=== PATIENT | male | born 1945 | race Caucasian/White ===

== ENCOUNTER 2019-08-02 20:14 | Inpatient (IN) | payer OTHER ==
[2019-08-02 20:39] LABS: BASOPHILS # (AUTO) 0.1 10^3/uL (0.0-0.1); BASOPHILS % (AUTO) 0.7 %; EOSINOPHILS # (AUTO) 0.4 10^3/uL (0.0-0.7); EOSINOPHILS % (AUTO) 5.1 %; HGB - HEMOGLOBIN 11.3 g/dL (14.0-18.0); LYMPHOCYTES # (AUTO) 0.8 10^3/uL (1.5-3.5); MEAN CORPUSCULAR HEMOGLOBIN 31.7 pg (27.0-31.0); MEAN CORPUSCULAR HGB CONC 32.5 g/dL (32.0-36.0); MEAN CORPUSCULAR VOLUME 97.5 fL (80.0-94.0); MEAN PLATELET VOLUME 10.2 fL (7.4-11.4); MONOCYTES # (AUTO) 0.7 10^3/uL (0.0-1.0); MONOCYTES % (AUTO) 9.6 %; NEUTROPHILS # (AUTO) 5.6 10^3/uL (1.5-6.6); NEUTROPHILS % (AUTO) 73.2 %; PLT - PLATELET COUNT 194 10^3/uL (130-450); RED BLOOD COUNT 3.57 10^6/uL (4.70-6.10); RED CELL DISTRIBUTION WIDTH 13.5 % (12.0-15.0); WHITE BLOOD COUNT 7.6 x10^3/uL (4.8-10.8)
[2019-08-02 20:56] LABS: BILIRUBIN,TOTAL 0.7 mg/dL (0.2-1.0); CALCIUM 8.2 mg/dL (8.5-10.3); CREATININE 3.8 mg/dL (0.6-1.2)
--- NOTE | 2019-08-02 21:16 | XRAY Report ---
Reason: chest pain Procedure Date: 08/02/2019 Accession Number: [id number] / [id number] Procedure: XR - Chest 1 View X-Ray CPT Code: 35247 Final Report FULL RESULT: EXAM: CHEST RADIOGRAPHY EXAM DATE: 08/02/2019 08:55 PM. CLINICAL HISTORY: Chest pain. COMPARISON: None. TECHNIQUE: 1 view. FINDINGS: Lungs/Pleura: No consolidation, airspace disease, pleural effusion or pneumothorax. Mediastinum: Within exam limitations, the cardiomediastinal contour is normal. Other: Screw seen at the left scapula. IMPRESSION: No acute cardiopulmonary disease seen. [facility]
--- NOTE | 2019-08-02 21:57 | ED Physician Documentation ---
History of Present Illness - Stated complaint Stated Complaint: WEAK/SOA/SWOLLEN LEGS - Chief complaint Chief Complaint: General - Additonal information Additional information: This is a 74-year-old male with a history of diabetes, Heart failure (unknown EF, but apparently a candidate for a defibrillator), hypertension, atrial fibrillation, CKD, who was sent in today from his primary care provider because of acute kidney injury. He states that for months now he has been winded to the point where he can only walk 50 feet at a time. This is not changed over last several weeks. He did change his dose of Lasix from 60 to 140 on 07/27/2019. Since then he has had increasing lower extremity edema. His creatinine was 2.10 on 06/28 which is his baseline, and on labs done yesterday his creatinine was elevated to 3.52. He denies any pain or burning with urination, no abdominal pain, his breathing feels baseline, he does not have any chest pain. His web producer is Dr. Gupta. He does feel that his lower extremities are slightly More swollen than usual. No chest pain. Review of Systems Constitutional: denies: Fever Nose: denies: Rhinorrhea / runny nose Cardiac: reports: Pedal edema. denies: Chest pain / pressure Respiratory: reports: Dyspnea GI: denies: Abdominal Pain : denies: Dysuria Skin: denies: Rash PD PAST MEDICAL HISTORY - Past Medical History Past Medical History: Yes Cardiovascular: Congestive heart failure, Hypertension, High cholesterol, Coronary artery disease, Atrial fibrillation Endocrine/Autoimmune: Type 2 diabetes HEENT: Chronic hearing loss Psych: Depression, Post traumatic stress disorder Musculoskeletal: Osteoarthritis, Chronic back pain - Past Surgical History Past Surgical History: Yes Ortho: Amputation - Present Medications Home Medications: Ambulatory Orders Medication Instructions Recorded Confirmed Aspirin [Adult Low Dose Aspirin EC] 81 mg PO DAILY 05/06/17 09/24/17 Cholecalciferol (Vitamin D3) 4,000 unit PO DAILY 05/06/17 09/24/17 [Vitamin D3] Cyanocobalamin (Vitamin B-12) 1,000 mcg PO DAILY 05/06/17 09/24/17 [Vitamin B-12] Furosemide [Lasix] 60 mg PO DAILY 05/06/17 09/24/17 Gabapentin 2 cap PO DAILY 05/06/17 09/24/17 Lisinopril 20 mg PO DAILY 05/06/17 09/24/17 Nortriptyline HCl 50 mg PO DAILY PM 05/06/17 09/24/17 Simvastatin 20 mg PO DAILY PM 05/06/17 09/24/17 Terazosin HCl 3 cap PO DAILY PM 05/06/17 09/24/17 - Allergies Allergies/Adverse Reactions: Allergies Allergy/AdvReac Type Severity Reaction Status Date / Time No Known Drug Allergies Allergy Verified 08/02/19 20:23 - Social History Does the pt smoke?: Yes Smoking Status: Current every day smoker PD ED PE NORMAL - Vitals Vital signs reviewed: Yes - General General: Alert and oriented X 3, No acute distress - HEENT HEENT: Atraumatic, PERRL - Neck Neck: Supple, no meningeal sign - Cardiac Cardiac: Other (Borderline bradycardia, irregularly irregular rhythm) - Respiratory Respiratory: Clear bilaterally - Abdomen Abdomen: Other (Rotund, nontender to palpation in all 4 quadrants) - Derm Derm: Warm and dry - Extremities Extremities: No deformity, Other (Right foot has all toes amputated, no skin wounds. Left foot on the plantar surface at the base of the second metacarpal has a 1 cm chronic wound which does not appear infected with no erythema no purulent drainage. Lateral lower extremities have 2+ pitting edema) - Neuro Neuro: Alert and oriented X 3 - Psych Psych: Normal mood, Normal affect Results - Vitals Vitals: Vital Signs - 24 hr 08/02/19 08/02/19 08/02/19 20:23 21:54 22:00 Temperature 37.1 C 36.8 C Heart Rate 59 L 46 L 44 L Respiratory 24 18 15 Rate Blood Pressure 147/58 H 168/67 H 138/60 H O2 Saturation 94 95 95 08/02/19 08/02/19 22:30 23:30 Temperature Heart Rate 47 L 48 L Respiratory 17 20 Rate Blood Pressure 149/72 H 147/64 H O2 Saturation 94 97 Oxygen O2 Source Room air - EKG (time done) 20:43 Other comments: Other comments (Rate 43, rhythm atrial fibrillation, there is a incomplete left bundle branch block, there is slight ST depression in V2 and V3, which is discordant.) - Labs Labs: Laboratory Tests 08/02/19 08/02/19 08/02/19 20:34 20:34 20:34 WBC 7.6 RBC 3.57 L Hgb 11.3 L Hct 34.8 L MCV 97.5 H MCH 31.7 H MCHC 32.5 RDW 13.5 Plt Count 194 MPV 10.2 Neut # (Auto) 5.6 Lymph # (Auto) 0.8 L Hamilton # (Auto) 0.7 Eos # (Auto) 0.4 Baso # (Auto) 0.1 Absolute Nucleated RBC 0.00 Nucleated RBC % 0.0 Sodium 144 Potassium 4.4 Chloride 113 H Carbon Dioxide 21 Anion Gap 10.0 BUN 79 H Creatinine 3.8 H Estimated GFR (MDRD) 16 L Glucose 129 H Calcium 8.2 L Magnesium 2.1 Total Bilirubin 0.7 AST 20 ALT 14 Alkaline Phosphatase 70 B-Natriuretic Peptide Total Protein 6.0 L Albumin 3.0 L Globulin 3.0 Albumin/Globulin Ratio 1.0 Lipase 48 08/02/19 20:34 WBC RBC Hgb Hct MCV MCH MCHC RDW Plt Count MPV Neut # (Auto) Lymph # (Auto) Hamilton # (Auto) Eos # (Auto) Baso # (Auto) Absolute Nucleated RBC Nucleated RBC % Sodium Potassium Chloride Carbon Dioxide Anion Gap BUN Creatinine Estimated GFR (MDRD) Glucose Calcium Magnesium Total Bilirubin AST ALT Alkaline Phosphatase B-Natriuretic Peptide 440 H Total Protein Albumin Globulin Albumin/Globulin Ratio Lipase - Rads (name of study) CXR Radiology: Other (No acute cardiopulmonary abnormality) PD MEDICAL DECISION MAKING - ED course Complexity details: considered differential (GABY, electrolyte abnormality, volume hypovolemia, overdiuresis, cardiorenal syndrome) ED course: On my examination patient is non-toxic, he was sent in due to his labs showing an elevated creatinine. He did recently increase his dose of diuretics, and speaking to him and his , he was told to take 80 mg a day and they were not sure whether this was supposed to be in place of the 60 mg he typically takes or on top of it, so they have been taking a total of 140 mg daily. Despite this he has had some lower extremity edema and his work of breathing is at his baseline. Labs today confirm that he has an elevated creatinine, which is significantly increased from his baseline of around 2. His BUN is also elevated. His BNP is elevated, though it is unclear how reflective this is of his overall heart strain given his weight. He will be admitted to the hospital for further work-up and treatment of his GABY and assessment of his heart failure and volume status. Patient remains asymptomatic at the time of admission, he is bradycardic, but this appears to be his baseline, and he has no chest pain or symptoms to suggest ACS. Departure - Departure Disposition: ED Place in Observation Clinical Impression: Acute kidney injury Condition: Good Discharge Date/Time: 08/03/19 00:13
--- NOTE | 2019-08-02 23:50 | HISTORY & PHYSICAL EXAMINATION ---
Chief Complaint - Chief Complaint Chief Complaint: acute kidney injury, lower extremity edema, dyspnea on exertion History of Present Illness - Admitted From Admitted From:: [facility] - History Obtained From Records Reviewed: yes History obtained from: patient and - History of Present Illness HPI Comment/Other: Patient is a 74 y/o male who presented to the ED at the request of his real estate executive assistant's (Dr Gupta) office after schedule out patient lab results showed a creatinine of 3.8. His las creatinine reading prior to this was 2.2 about 1 month ago. He reports increased lower extremity edema and increased feeling of bloating. He gets significantly dyspneic after ambulating about 50ft and has to stop for a breath. He also complain of a feeling like heart burn during this time. He denies nausea, vomiting, diarrhea or fever. He had been instructed to start taking 80mg of lasix po daily from 07/27/19. This would have been an increase from 60mg po daily. However he has been taking a total of 140mg po daily since 07/27/19. He is scheduled to see Dr Gupta on 08/05/19. He has Hx of CHF. His remote medical coder is Dr Salas. His BNP was 440. As a result of his creatinine of 3.8 he is being admitted for further evaluation. History - Past Medical History Cardiovascular: reports: Congestive heart failure, Hypertension, High cholesterol, Coronary artery disease, Atrial fibrillation Endocrine/Autoimmune: reports: Type 2 diabetes : reports: Benign prostate hypertrophy HEENT: reports: Chronic hearing loss Psych: reports: Depression, Post traumatic stress disorder Musculoskeletal: reports: Osteoarthritis, Chronic back pain MRSA Hx?: No - Past Surgical History Ortho: reports: Knee replacement (bilateral), Amputation (right distal half of foot) Cardiovascular: reports: Angioplasty - Family & Social History Family History Comment/Other: mother: breast cancer and heart failure. father: alcohol abuse, cirrhosis and emphysema. brother: brain aneurysm. paternal grandfather: cancer(unspecified) Living arrangement: At home Living Situation: With spouse/s.o. Social History Notes: Quit smoking 33 years ago but recently started again 3 months ago while on an [employer] cruise. Rarely drinks alcohol. No illicit drugs - POLST Patient has POLST: No POLST Status: Full Code Meds/Allgy - Home Medications Home Medications: Ambulatory Orders Medication Instructions Recorded Confirmed Cholecalciferol (Vitamin D3) 4,000 unit PO DAILY 05/06/17 08/03/19 [Vitamin D3] Furosemide [Lasix] 80 mg PO DAILY 05/06/17 08/03/19 Lisinopril 40 mg PO QPM 05/06/17 08/03/19 Nortriptyline HCl 50 mg PO DAILY PM 05/06/17 08/03/19 Simvastatin 20 mg PO DAILY PM 05/06/17 08/03/19 Terazosin HCl 4 cap PO DAILY PM 05/06/17 08/03/19 Amlodipine Besylate 10 mg PO QPM 08/03/19 08/03/19 Apixaban [Eliquis] 5 mg PO BID 08/03/19 08/03/19 Dextrose [Glucose] 4 gm PO 08/03/19 Duloxetine HCl [Cymbalta] 60 mg PO DAILY 08/03/19 08/03/19 Glimepiride 1 mg PO DAILY 08/03/19 08/03/19 Testosterone Cypionate 200 mg IM 08/03/19 hydrALAZINE [Apresoline] 25 mg PO QID 08/03/19 08/03/19 - Allergies Allergies/Adverse Reactions: Allergies Allergy/AdvReac Type Severity Reaction Status Date / Time No Known Drug Allergies Allergy Verified 08/02/19 20:23 Review of Systems - Constitutional Constitutional: denies: Fatigue, Fever, Chills - Eyes Eyes: denies: Blurred vision, Dipolpia - Ears, Nose & Throat Ears, Nose & Throat: denies: Vertigo - Cardiovascular Cariovascular: reports: Edema, Exertional dyspnea, Decr. exercise tolerance. denies: Irregular heart rate, Palpitations, Chest pain, Lightheadedness, Syncope - Respiratory Respiratory: reports: SOB at rest, SOB with exertion. denies: Cough, Wheezing, Snoring - Gastrointestinal Gastrointestinal: reports: Abdominal distention, Reflux/heartburn, Bloating. denies: Abdominal pain, Constipation, Diarrhea, Nausea, Vomiting, Coffee grounds emesis - Genitourinary Genitourinary: denies: Dysuria, Frequency, Urgency, Hematuria, Incontinence, Flank pain - Musculoskeletal Musculoskeletal: reports: Back pain - Integumentary Integumentary: denies: Rash, Pruritis, Lesions, Dryness - Neurological Neurological: denies: General weakness, Focal weakness, Headache, Dizziness - Psychiatric Psychiatric: denies: Depression, Anxiety - Endocrine Endocrine: denies: Polyuria, Polydypsia - Hematologic/Lymphatic Hematologic/Lymphatic: denies: Anemia, Bruising, Petechiae Prior Level of Functionality: He is independent of activities of daily living. But has become increasingly dyspneic with activity Exam - Vital Signs Vital Signs: Vital Signs x48h Temp Pulse Resp BP Pulse Ox 08/02/19 22:30 47 L 17 149/72 H 94 08/02/19 22:00 44 L 15 138/60 H 95 08/02/19 21:54 36.8 C 46 L 18 168/67 H 95 08/02/19 20:23 37.1 C 59 L 24 147/58 H 94 - Physical Exam General Appearance: positive: No acute distress, Alert Eyes Bilateral: positive: Normal inspection, PERRL, EOMI ENT: positive: No signs of dehydration Neck: positive: Nml inspection, No JVD, Trachea midline Respiratory: positive: No respiratory distress, Breath sounds nml. negative: Wheezes, Rales, Rhonchi Cardiovascular: positive: Bradycardia. negative: Regular rate & rhythm, No murmur Abdomen: positive: Non-tender, Nml bowel sounds, Other (distended/bloated/obese abdomen). negative: Guarding, Rebound Back: positive: Nml inspection Skin: positive: Color nml, No rash, Warm Extremities: positive: Pedal edema (2+) Neurologic/Psychiatric: positive: Oriented x3, CN's nml (2-12), Motor nml Conclusion/Plan - Problem List (1) Acute on chronic renal failure Conclusion/Plan: Likely multifactorial cause Med error: Patient has been taking lasix 140mg daily instead of 80mg daily ?Worsening cardiac function from CHF Will go back to lasix 80mg daily. Renal ultrasound ordered. Patient scheduled to see Dr Gupta on 08/05/19. If renal function remains stable or improves, will discharge to follow up with Dr Gupta (2) CHF (congestive heart failure) Conclusion/Plan: 2D echo pending Continue lasix 80mg po daily Trend troponin (3) CAD (coronary artery disease) Conclusion/Plan: On apixaban. Trend troponin. 2D echo pending On simvastatin. Hold lisinopril for now 2/2 GABY (4) Bradycardia Conclusion/Plan: Hold beta-vandana Monitor for now. If patient becomes symptomatic, will consider pacing (5) Hypertension Conclusion/Plan: Hold lisinopril for now. Continue hydralazine once verified (6) Depression Conclusion/Plan: On duloxetine and nortriptyline (7) BPH (benign prostatic hyperplasia) Conclusion/Plan: On terazosin (8) Diabetes mellitus Conclusion/Plan: Hold glimepiride Accu check. SSI Qualifiers: Diabetes mellitus type: type 2 (9) Hyperlipemia Conclusion/Plan: Resume simvastatin once verified. - Lab Results Fish Bones: 08/02/19 20:34 08/02/19 20:34 Core Measures - Anticipated LOS I expect patient to be DC'd or transferred within 96 hours.: Yes - DVT/VTE - Prophylaxis VTE/DVT Device ordered at admit?: Yes VTE/DVT Prophylaxis med ordered at admit?: Yes
[2019-08-03] MEDS: SODIUM CHLORIDE FLUSH 0.9% 10 ML SYRINGE IVP SCH ×3 (04:24→21:26)
[2019-08-03 05:44] LABS: BASOPHILS % (AUTO) 0.6 %; EOSINOPHILS # (AUTO) 0.5 10^3/uL (0.0-0.7); EOSINOPHILS % (AUTO) 6.4 %; HGB - HEMOGLOBIN 10.6 g/dL (14.0-18.0); LYMPHOCYTES # (AUTO) 1.3 10^3/uL (1.5-3.5); LYMPHOCYTES % (AUTO) 18.2 %; MEAN CORPUSCULAR HEMOGLOBIN 32.7 pg (27.0-31.0); MEAN CORPUSCULAR HGB CONC 33.1 g/dL (32.0-36.0); MEAN CORPUSCULAR VOLUME 98.8 fL (80.0-94.0); MEAN PLATELET VOLUME 10.6 fL (7.4-11.4); MONOCYTES # (AUTO) 0.7 10^3/uL (0.0-1.0); MONOCYTES % (AUTO) 9.6 %; NEUTROPHILS # (AUTO) 4.5 10^3/uL (1.5-6.6); NEUTROPHILS % (AUTO) 64.9 %; PLT - PLATELET COUNT 185 10^3/uL (130-450); RED BLOOD COUNT 3.24 10^6/uL (4.70-6.10); RED CELL DISTRIBUTION WIDTH 13.5 % (12.0-15.0)
[2019-08-03 05:52] LABS: CALCIUM 8.3 mg/dL (8.5-10.3); CREATININE 3.7 mg/dL (0.6-1.2)
[2019-08-03] MEDS: PANTOPRAZOLE 40 MG TABLET PO SCH (06:12)
[2019-08-03] MEDS: INSULIN ASPART 300 UNIT/3 ML PEN SUBQ SCH ×4 (08:42→21:26)
[2019-08-03] MEDS ORDERED: hydrALAZINE 25 MG TABLET PO SCH (09:00)
[2019-08-03] MEDS ORDERED: APIXABAN 5 MG TABLET PO SCH (11:00)
[2019-08-03] MEDS: SENNA 8.6 MG TABLET PO SCH (13:51)
[2019-08-03] MEDS: ACETAMINOPHEN/CODEINE 300 MG/30 MG TABLET PO PRN ×2 (13:51→20:09)
[2019-08-03] MEDS: DOCUSATE SODIUM 250 MG CAPSULE PO SCH (13:51)
[2019-08-03] MEDS: hydrALAZINE 25 MG TABLET PO SCH ×2 (14:02→21:20)
--- NOTE | 2019-08-03 15:52 | Ultrasound Report ---
Reason: ACUTE KIDNEY INJURY Procedure Date: 08/03/2019 Accession Number: [id number] / [id number] Procedure: US - Retroperitoneal CPT Code: Final Report FULL RESULT: EXAM: RENAL ULTRASOUND EXAM DATE: 08/03/2019 04:45 AM. CLINICAL HISTORY: ACUTE KIDNEY INJURY. COMPARISON: None. TECHNIQUE: Real-time scanning was performed with static images obtained. FINDINGS: Right Kidney: Right kidney measures 13.0 x 5.9 x 7.0 cm. Increased echogenicity of right kidney. Multiple cysts are present with largest measuring 2.9 x 2.8 x 4.0 cm with possible small septation. Several echogenic foci are present in right kidney, possibly nonobstructive calculi. Focal echogenic area in superior pole of right kidney measuring approximately 1 cm. Trace perinephric fluid. Left Kidney: Left kidney measures 12.0 x 6.6 x 5.6 cm. Left kidney appears mildly echogenic. Multiple cysts are present, largest measuring 1.9 x 2.3 x 2.2 cm. Several echogenic foci are present in right kidney, possibly nonobstructive calculi. Focal echogenic area in mid to inferior pole measuring approximately 2 cm. Bladder: Bilateral jets seen. The prevoid bladder volume was 326.2 cc. The postvoid bladder volume was 0 cc. Other: None. IMPRESSION: 1. Mildly echogenic kidneys suggestive of medical renal disease. 2. Bilateral renal cysts, largest on right measuring up to 4 cm. 3. Focal echogenic lesions in both kidneys, measuring approximately 1 cm on the right and 2 cm on the left. Sonographic findings are nonspecific. Recommend follow-up renal protocol CT or MR to further assess (with contrast if not contraindicated based on renal function). [facility]
[2019-08-03 16:17] LABS: CREATININE 3.9 mg/dL (0.6-1.2)
--- NOTE | 2019-08-03 17:47 | PROVIDER PROGRESS NOTE ---
Assessment/Plan - Problem List (1) Chest pain on exertion Assessment/Plan: He reported this as his main complaint as I met him today. This started 2 n mos ago, while he and his were on a cruise to [place]. He has an appointment with his Human Resources File Clerk, Dr Salas, in Aug. He last saw him Aug 2018. His troponins are neg here. An Echo wa done today, that shows no wall motion abnormality at rest, and LVEF 70% When I spoke today to Dr MATTHIAS Gupta, his Potato Chip Packaging Machine Operator, he advised transfer to a facility with a cardiac rags laborer. Will start antiplatelet agent, especially since the Eliquis will be stopped due to severe renal failure and creat > 2.5. Add Nitrates No B-vandana planned with his underlying bradycardia Diuresis would also help his CP sx (2) Acute on chronic renal failure Assessment/Plan: I spoke to his service greeter, Dr MATTHIAS Gupta, who called me back in the late afternoon. The Potato Chip Packaging Machine Operator advised managing his fluid overload and transfer to a facility with higher level of care available, such as [facility] or [facility]. Will admit him from Obs to Inpt status, since the creat is continuously worsening ([facility], 3.8 last evening, is 3.9 today). His retroperitoneal US showed echogenic kidneys, consistent with medical renal disease Do not resume his SERA Resume Hydralazine Will start iv Bumex Follow BMP I discussed the possibility of needing dialysis with him and was at bedside Will reach out to the [facility] to get approval for transfer to [facility], the patient's preference, if not the [facility]. (3) Anasarca associated with disorder of kidney Assessment/Plan: He requires a higher loop diuretic dose for diuresis Follow I's and O's Daily weight (4) Bradycardia Assessment/Plan: He was once checked for needing a pacemaker (not a defibrillator) by wearing a Holter monitor, and then no pacemaker was advised. 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 Will stop the Eliquis now, due to creat > 2.5. Continue telemetry (6) CHF (congestive heart failure) Qualifiers: Heart failure type: diastolic Assessment/Plan: Echo was done today and shows preserved LVEF of 70% but diastolic dysfunction present. Rate control (already slow) and diuresis are the plan. (7) Diabetes mellitus Qualifiers: Diabetes mellitus type: type 2 Assessment/Plan: Continue cc diet and ss Insulin Check A1c (8) Hypertension Assessment/Plan: Will adjust meds for BP control, stopping SERA-I, adding Nitrates to decrease preload. (9) CAD (coronary artery disease) Assessment/Plan: He gave me a Hx of previous angioplasty and stent Add ASA, Nitrates, statin (10) BPH (benign prostatic hyperplasia) Assessment/Plan: Restart home meds Eval for obstructive uropathy with MRI abd/pelvis (11) Depression Assessment/Plan: Restart home meds - Current Meds Current Meds: Current Medications Generic Name Dose Route Start Last Admin Trade Name Freq PRN Reason Stop Dose Admin Acetaminophen/Codeine Phosphate 1 tab 08/03/19 10:33 08/03/19 13:51 Tylenol #3 PO 1 tab Q6HR PRN Administration PAIN Docusate Sodium 250 - 500 mg 08/03/19 12:00 08/03/19 13:51 Colace 250mg Capsule PO 250 mg DAILY MARIANO Administration Hydralazine HCl 25 mg 08/03/19 15:00 08/03/19 14:02 Apresoline PO 25 mg TID MARIANO Administration Insulin Aspart 1 - 5 unit 08/03/19 08:00 08/03/19 17:32 Novolog SUBQ 1 unit 0800,1200,1700,2100 MARIANO Administration Protocol Pantoprazole Sodium 40 mg 08/03/19 07:00 08/03/19 06:12 Protonix PO Not Given QDAC MARIANO Senna 8.6 - 17.2 mg 08/03/19 12:00 08/03/19 13:51 Senokot PO 8.6 mg DAILY MARIANO Administration Sodium Chloride 10 ml 08/03/19 01:00 08/03/19 08:43 Normal Saline Flush 0.9% IVP 10 ml 0100,0900,1700 MARIANO Administration - Lab Result Fish Bone Diagrams: 08/03/19 05:34 08/03/19 16:02 - Additional Planning My Orders: My Active Orders 08/03/19 CUL, RESPIRATORY [RM] Urgent 08/03/19 10:33 Acetaminophen/Cod 300/30 [Tylenol #3] 1 tab PO Q6HR PRN 08/03/19 15:00 hydrALAZINE [Apresoline] 25 mg PO TID 08/03/19 17:42 Transfer [Admit \ Transfer \ Status] [RC] .ONCE 08/03/19 21:00 Nortriptyline [Pamelor] 50 mg PO QPM Terazosin [Hytrin] 4 mg PO QPM Subjective - Subjective Patient Reports: Shortness of Breath, Other (Orthopneic, worsening abdominal distension) Objective Vital Signs: Vital Signs - 24 hr 08/02/19 08/02/19 08/02/19 20:23 21:54 22:00 Temperature 37.1 C 36.8 C Heart Rate 59 L 46 L 44 L Heart Rate [ Brachial] Heart Rate [ Monitoring electrodes] Heart Rate [ Radial] Respiratory 24 18 15 Rate Blood Pressure 147/58 H 168/67 H 138/60 H Blood Pressure [Left Brachial artery] O2 Saturation 94 95 95 08/02/19 08/02/19 08/03/19 22:30 23:30 00:00 Temperature Heart Rate 47 L 48 L 48 L Heart Rate [ Brachial] Heart Rate [ Monitoring electrodes] Heart Rate [ Radial] Respiratory 17 20 15 Rate Blood Pressure 149/72 H 147/64 H 147/64 H Blood Pressure [Left Brachial artery] O2 Saturation 94 97 93 08/03/19 08/03/19 08/03/19 00:45 04:54 08:41 Temperature 36.3 C L 36.3 C L 36.9 C Heart Rate Heart Rate [ 44 L 49 L 57 L Brachial] Heart Rate [ Monitoring electrodes] Heart Rate [ Radial] Respiratory 17 16 19 Rate Blood Pressure Blood Pressure 140/60 H 162/67 H 137/68 H [Left Brachial artery] O2 Saturation 94 94 08/03/19 08/03/19 08/03/19 13:00 16:20 16:22 Temperature 36.3 C L 36.4 C L Heart Rate Heart Rate [ 133 H Brachial] Heart Rate [ 41 L Monitoring electrodes] Heart Rate [ 43 L Radial] Respiratory 18 16 Rate Blood Pressure Blood Pressure 145/68 H 160/69 H [Left Brachial artery] O2 Saturation 96 Oxygen O2 Source Nasal cannula I&O (Last 24 Hrs): Intake and Output Totals x24h 08/01/19 08/02/19 08/03/19 23:59 23:59 23:59 Intake Total 980 Output Total 400 Balance 580 General: Alert, Oriented x3 HEENT: Mucous membr. moist/pink Neck: Supple Neuro: Non Focal Cardiovascular: No murmurs, Other (Irreg, bradycardic) Respiratory: Other (Bilateral rales and bases) Abdomen: Soft, No tenderness, Other (Distended, possible fluid wave) Extremities: Other (4+ edema, R foot is S/P transmetatarsal amputation, healed) - Results Results: Laboratory Results WBC 7.0 x10^3/uL (4.8-10.8) 08/03/19 05:34 RBC 3.24 10^6/uL (4.70-6.10) L 08/03/19 05:34 Hgb 10.6 g/dL (14.0-18.0) L 08/03/19 05:34 Hct 32.0 % (42.0-52.0) L 08/03/19 05:34 MCV 98.8 fL (80.0-94.0) H 08/03/19 05:34 MCH 32.7 pg (27.0-31.0) H 08/03/19 05:34 MCHC 33.1 g/dL (32.0-36.0) 08/03/19 05:34 RDW 13.5 % (12.0-15.0) 08/03/19 05:34 Plt Count 185 10^3/uL (130-450) 08/03/19 05:34 MPV 10.6 fL (7.4-11.4) 08/03/19 05:34 Neut # (Auto) 4.5 10^3/uL (1.5-6.6) 08/03/19 05:34 Lymph # (Auto) 1.3 10^3/uL (1.5-3.5) L 08/03/19 05:34 [place] # (Auto) 0.7 10^3/uL (0.0-1.0) 08/03/19 05:34 Eos # (Auto) 0.5 10^3/uL (0.0-0.7) 08/03/19 05:34 Baso # (Auto) 0.0 10^3/uL (0.0-0.1) 08/03/19 05:34 Absolute Nucleated RBC 0.00 x10^3/uL 08/03/19 05:34 Nucleated RBC % 0.0 /100WBC 08/03/19 05:34 Sodium 141 mmol/L (135-145) 08/03/19 05:34 Potassium 4.5 mmol/L (3.5-5.0) 08/03/19 16:02 Chloride 111 mmol/L (101-111) 08/03/19 05:34 Carbon Dioxide 20 mmol/L (21-32) L 08/03/19 05:34 Anion Gap 10.0 (6-13) 08/03/19 05:34 BUN 80 mg/dL (6-20) H* 08/03/19 05:34 Creatinine 3.9 mg/dL (0.6-1.2) H 08/03/19 16:02 Estimated GFR (MDRD) 15 (>89) L 08/03/19 16:02 Glucose 107 mg/dL (70-100) H 08/03/19 05:34 POC Whole Bld Glucose 255 mg/dL (70 - 100) H 08/03/19 11:41 Calcium 8.3 mg/dL (8.5-10.3) L 08/03/19 05:34 Magnesium 2.1 mg/dL (1.7-2.8) 08/02/19 20:34 Total Bilirubin 0.7 mg/dL (0.2-1.0) 08/02/19 20:34 AST 20 IU/L (10-42) 08/02/19 20:34 ALT 14 IU/L (10-60) 08/02/19 20:34 Alkaline Phosphatase 70 IU/L (42-121) 08/02/19 20:34 Troponin I High Sens 19.2 ng/L (2.3-19.7) 08/03/19 13:30 B-Natriuretic Peptide 440 pg/mL (5-100) H 08/02/19 20:34 Total Protein 6.0 g/dL (6.7-8.2) L 08/02/19 20:34 Albumin 3.0 g/dL (3.2-5.5) L 08/02/19 20:34 Globulin 3.0 g/dL (2.1-4.2) 08/02/19 20:34 Albumin/Globulin Ratio 1.0 (1.0-2.2) 08/02/19 20:34 Lipase 48 U/L (22-51) 08/02/19 20:34
[2019-08-03] MEDS: NITROGLYCERIN 2% PASTE TOP SCH (19:08)
[2019-08-03] MEDS ORDERED: TERAZOSIN 1 MG CAPSULE PO SCH (21:00)
[2019-08-03] MEDS ORDERED: NORTRIPTYLINE 25 MG CAPSULE PO SCH (21:00)
[2019-08-03] MEDS ORDERED: ATORVASTATIN 40 MG TABLET PO SCH (21:00)
[2019-08-04] MEDS: SODIUM CHLORIDE FLUSH 0.9% 10 ML SYRINGE IVP SCH ×2 (00:28→08:24)
[2019-08-04] MEDS: ACETAMINOPHEN/CODEINE 300 MG/30 MG TABLET PO PRN ×2 (02:49→13:21)
[2019-08-04] MEDS: NITROGLYCERIN 2% PASTE TOP SCH ×2 (02:50→11:20)
[2019-08-04 04:49] LABS: BASOPHILS # (AUTO) 0.1 10^3/uL (0.0-0.1); BASOPHILS % (AUTO) 0.6 %; EOSINOPHILS # (AUTO) 0.5 10^3/uL (0.0-0.7); EOSINOPHILS % (AUTO) 6.5 %; HGB - HEMOGLOBIN 10.3 g/dL (14.0-18.0); LYMPHOCYTES # (AUTO) 0.9 10^3/uL (1.5-3.5); MEAN CORPUSCULAR HEMOGLOBIN 32.4 pg (27.0-31.0); MEAN CORPUSCULAR HGB CONC 32.6 g/dL (32.0-36.0); MEAN CORPUSCULAR VOLUME 99.4 fL (80.0-94.0); MEAN PLATELET VOLUME 10.9 fL (7.4-11.4); MONOCYTES # (AUTO) 0.8 10^3/uL (0.0-1.0); MONOCYTES % (AUTO) 9.3 %; NEUTROPHILS # (AUTO) 5.9 10^3/uL (1.5-6.6); NEUTROPHILS % (AUTO) 72.2 %; PLT - PLATELET COUNT 189 10^3/uL (130-450); RED BLOOD COUNT 3.18 10^6/uL (4.70-6.10); RED CELL DISTRIBUTION WIDTH 13.3 % (12.0-15.0); WHITE BLOOD COUNT 8.2 x10^3/uL (4.8-10.8)
[2019-08-04 04:58] LABS: CALCIUM 8.1 mg/dL (8.5-10.3); CREATININE 3.8 mg/dL (0.6-1.2)
[2019-08-04] MEDS: PANTOPRAZOLE 40 MG TABLET PO SCH (06:20)
[2019-08-04] MEDS: hydrALAZINE 25 MG TABLET PO SCH ×2 (06:22→13:21)
[2019-08-04] MEDS: BUMETANIDE 1 MG/4 ML VIAL IVP SCH ×2 (06:27→13:21)
[2019-08-04] MEDS: SODIUM CHLORIDE FLUSH 0.9% 10 ML SYRINGE IVP PRN ×2 (06:28→06:36)
[2019-08-04] MEDS ORDERED: BUMETANIDE 1 MG/4 ML VIAL IVP SCH (07:00)
[2019-08-04] MEDS: INSULIN ASPART 300 UNIT/3 ML PEN SUBQ SCH ×3 (08:23→17:12)
[2019-08-04] MEDS: DOCUSATE SODIUM 250 MG CAPSULE PO SCH (08:23)
[2019-08-04] MEDS: SENNA 8.6 MG TABLET PO SCH (08:23)
[2019-08-04] MEDS ORDERED: ASPIRIN EC 81 MG TABLET PO SCH (09:00)
[2019-08-04] MEDS ORDERED: NON FORMULARY MED (Duloxetine Hcl [Cymbalta] 60 MG) PO SCH (09:00)
[2019-08-04] MEDS ORDERED: CHOLECALCIFEROL 1,000 UNIT TABLET PO SCH (09:00)
[2019-08-04] MEDS ORDERED: metOLazone 2.5 MG TABLET PO SCH (13:30)
--- NOTE | 2019-08-04 14:27 | XRAY Report ---
Reason: Worsening SOB Procedure Date: 08/04/2019 Accession Number: [id number] / [id number] Procedure: XR - Chest 1 View X-Ray CPT Code: 89268 Final Report FULL RESULT: EXAM: CHEST RADIOGRAPHY EXAM DATE: 08/04/2019 02:02 PM. CLINICAL HISTORY: Worsening SOB. COMPARISON: CHEST 1 VIEW 08/02/2019 8:48 PM. TECHNIQUE: 1 view. FINDINGS: Lungs/Pleura: No focal opacities. No effusions. Mediastinum: Stable Other: Bilateral glenohumeral osteoarthritis IMPRESSION: No acute radiographic cardiopulmonary process RADIA
--- NOTE | 2019-08-04 14:36 | Discharge Plan ---
Discharge Plan Problem Reviewed?: Yes Disposition: 02 Transfer Acute Care Hosp Condition: Good No Smoking: If you smoke, Please STOP! Call for help. Follow-up with: DUNIA CARLSON DO [Primary Care Provider] -
--- NOTE | 2019-08-04 14:37 | DISCHARGE SUMMARY ---
Discharge Summary Admit Date: 08/02/19 Discharge Date: 08/04/19 Discharging Provider: Dr Marjorie Wing Primary Care Provider: Dr Alonso Castro Rai Condition at Discharge: Good Discharge Disposition: 02 Transfer Acute Care Hosp Discharge Facility [facility]: [facility] - DIAGNOSES Admission Diagnoses: (1) Acute on chronic renal failure (2) CHF (congestive heart failure) (3) CAD (coronary artery disease) (4) Bradycardia (5) Hypertension (6) Depression (7) BPH (benign prostatic hyperplasia) (8) Diabetes mellitus (9) Hyperlipemia Discharge Diagnoses with Status of Each Condition: See below - HPI History of Present Illness: From the admission H&P of Dr Haritha Gates: Patient is a 74 y/o male who presented to the ED at the request of his network development coordinator's (Dr Gupta) office after schedule out patient lab results showed a creatinine of 3.8. His las creatinine reading prior to this was 2.2 about 1 month ago. He reports increased lower extremity edema and increased feeling of bloating. He gets significantly dyspneic after ambulating about 50ft and has to stop for a breath. He also complain of a feeling like heart burn during this time. He denies nausea, vomiting, diarrhea or fever. He had been instructed to start taking 80mg of lasix po daily from 07/27/19. This would have been an increase from 60mg po daily. However he has been taking a total of 120mg po nancy y since 07/27/19. He is scheduled to see Dr Gupta on 08/05/19. He has Hx of CHF. His toll operator is Dr Salas. His BNP was 440. As a result of his creatinine of 3.8 he is being admitted for further evaluation. - HOSPITAL COURSE Hospital Course: (1) Acute on chronic renal failure His creat did not improve with discontinuation of the loop diuretic and SERA-I, but no additional hydration. The patient was admit from Observation to Inpt status, since the creat was continuously worsening ([facility], 3.8 at admission then up to 3.9). He had a retroperitoneal US showed echogenic kidneys, consistent with medical renal disease. I spoke to his network development coordinator, Dr MATTHIAS Gupta, who advised managing his fluid overload and transfer to a facility with higher level of care available, with Nephrology specialty. There were no beds at [facility] and he was accepted at [facility] and transferred there in stable condition by ambulance. (2) Anasarca associated with disorder of kidney He eventually was treated with Metolazone and iv loop diuretic dose for diuresis. (3) Chest pain on exertion He reported this as his main complaint which had started 2 mos ago, while he and his were on a cruise to [place]. His troponins are neg here. An Echo was done that showed no resting wall motion abnormality, and LVEF 70%. He was started on antiplatelet agent, especially since the Eliquis will be stopped due to severe renal failure and creat > 2.5. Nitropaste and diuresis were ordered. No B-vandana was used with his underlying bradycardia. He has an appointment with his Felled Seam Operator, Dr Salas, in Aug. He last saw him Aug 2018. (4) Bradycardia He was once checked for needing a pacemaker (not a defibrillator) by wearing a Holter monitor, and then no pacemaker was advised. 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 (5) Chronic a-fib He was on no HR slowing meds and has rate controlled, consistent with conduction system disease. He had been on Eliquis at a dose for patients without renal disease, which was stopped due to creat > 2.5. Aspirin was started for stroke prophylaxis. (6) CHF (congestive heart failure) The Echo done here showed preserved LVEF of 70% but diastolic dysfunction present. Rate control (already slow) and diuresis were the plan. (7) Diabetes mellitus He was on a cc diet and ss Insulin (8) Hypertension Meds were adjusted for BP control, stopping SERA-I, using Hydralazine and adding Nitrates (9) CAD (coronary artery disease) He gave a Hx of previous angioplasty and stent. We added ASA, Nitrates, and statin (10) BPH (benign prostatic hyperplasia) Restarted on home meds (11) Depression Restarted on home meds - ALLERGIES Allergies/Adverse Reactions: Allergies Allergy/AdvReac Type Severity Reaction Status Date / Time No Known Drug Allergies Allergy Verified 08/02/19 20:23 - MEDICATIONS Home Medications: Ambulatory Orders Medication Instructions Recorded Confirmed Cholecalciferol (Vitamin D3) 4,000 unit PO DAILY 05/06/17 08/03/19 [Vitamin D3] Furosemide [Lasix] 80 mg PO DAILY 05/06/17 08/03/19 Lisinopril 40 mg PO QPM 05/06/17 08/03/19 Nortriptyline HCl 50 mg PO DAILY PM 05/06/17 08/03/19 Simvastatin 20 mg PO DAILY PM 05/06/17 08/03/19 Terazosin HCl 4 cap PO DAILY PM 05/06/17 08/03/19 Amlodipine Besylate 10 mg PO QPM 08/03/19 08/03/19 Apixaban [Eliquis] 5 mg PO BID 08/03/19 08/03/19 Dextrose [Glucose] 4 gm PO PRN PRN 08/03/19 08/04/19 Duloxetine HCl [Cymbalta] 60 mg PO DAILY 08/03/19 08/03/19 Glimepiride 1 mg PO DAILY 08/03/19 08/03/19 Testosterone Cypionate 200 mg IM 08/03/19 hydrALAZINE [Apresoline] 25 mg PO TID 08/03/19 08/03/19 - PHYSICAL EXAM AT DISCHARGE General Appearance: positive: No acute distress, Alert, Lethargic (As his BUN clark, he noticed being more foggy) Eyes Bilateral: positive: Normal inspection, PERRL ENT: positive: ENT inspection nml, No signs of dehydration Neck: positive: Nml inspection, Thyroid nml, No JVD Respiratory: positive: Rales Cardiovascular: positive: No murmur, Bradycardia Abdomen: positive: Other (Obese with a pannus, possible ascites, cannot R/O hepatomegaly) Skin: positive: Color nml Extremities: positive: Other (2+ edema, dry ulcer of the dorsum/pad of L foot near toes) Neurologic/Psychiatric: positive: Oriented x3, Other (Grossly intact) - LABS Result Diagrams: 08/04/19 04:25 08/04/19 04:25 - DIAGNOSTIC IMAGING Diagnostic Imaging Results: Final report reviewed - TIME SPENT Time Spent in Discharge (Minutes): 65
[2019-08-04 17:30] VITALS: BP 165/69
== END 2019-08-04 18:00 | disposition short-term general hospital (02) | DRG 683 ==
LOC: ED 20:14 → MS3 23:41 → OBSVTOIN 08-03 17:42
PROVIDERS: ADMIT Internal Medicine; ATTEND Internal Medicine
DX: N17.9 Acute kidney failure, unspecified (principal); I13.0 Hypertensive heart and chronic kidney disease with heart failure and stage 1 through stage 4 chronic kidney disease, or unspecified chronic kidney disease; I50.30 Unspecified diastolic (congestive) heart failure; I48.20 Chronic atrial fibrillation, unspecified; N04.9 Nephrotic syndrome with unspecified morphologic changes; R07.9 Chest pain, unspecified; E11.22 Type 2 diabetes mellitus with diabetic chronic kidney disease; N18.9 Chronic kidney disease, unspecified; E78.5 Hyperlipidemia, unspecified; R00.1 Bradycardia, unspecified; I25.10 Atherosclerotic heart disease of native coronary artery without angina pectoris; N40.0 Benign prostatic hyperplasia without lower urinary tract symptoms; F32.9 Major depressive disorder, single episode, unspecified; F43.10 Post-traumatic stress disorder, unspecified; F17.200 Nicotine dependence, unspecified, uncomplicated; G89.29 Other chronic pain; M54.9 Dorsalgia, unspecified; M19.90 Unspecified osteoarthritis, unspecified site; H91.90 Unspecified hearing loss, unspecified ear; Z96.653 Presence of artificial knee joint, bilateral; Z89.431 Acquired absence of right foot; Z79.01 Long term (current) use of anticoagulants; Z79.84 Long term (current) use of oral hypoglycemic drugs; Z79.899 Other long term (current) drug therapy; Z95.5 Presence of coronary angioplasty implant and graft
CPT/HCPCS: 36415; 71045; 76770; 80048; 80053; 82565; 83690; 83735; 83880; 84132; 84484; 85025; 87205; 93005; 93306; 99284; 99285; A9270; G0378; 87070

== ENCOUNTER 2019-08-04 18:00 | Outpatient (CLI) | payer OTHER | END 2019-08-04 18:01 | disposition short-term general hospital (02) | LOC: EMS 18:00 | PROVIDERS: ATTEND Surgery | DX: R00.1 Bradycardia, unspecified (principal); N04.9 Nephrotic syndrome with unspecified morphologic changes; N19 Unspecified kidney failure; I48.20 Chronic atrial fibrillation, unspecified | CPT/HCPCS: A0425; A0426 ==

== ENCOUNTER 2019-09-23 13:06 | Emergency (ER) | payer OTHER ==
[2019-09-23] MEDS ORDERED: PANTOPRAZOLE 40 MG VIAL IVP STA (13:30)
--- NOTE | 2019-09-23 13:34 | ED Physician Documentation ---
PD HPI CHEST PAIN - Stated complaint Stated Complaint: SOA - Chief complaint Chief Complaint: Cardiac - History obtained from History obtained from: Patient (74-year-old gentleman with history of congestive heart failure, stents, he is on dialysis, Thursday, , Thursday with Dr. Gupta is his executive manager. He was admitted to [facility] where the renal failure was diagnosed and he also had the stents, he got out about 3 weeks ago. He is noted subacute shortness of breath and worsening orthostatic dizziness over months. He has had dark and tarry stools recently and had outpatient labs showing a hemoglobin of 6.82 to 3 days ago and was referred to the ER for same. He is on apixaban, I asked him why he is on a blood thinner and he does not really know, ask him if he has atrial fibrillation and he replies "probably." He is also on ticagrelor. He has a history of peptic ulcer disease, "but it never bothered me." Does not take NSAIDs currently.) Review of Systems Ten Systems: 10 systems reviewed and negative Constitutional: denies: Fever, Chills Nose: denies: Rhinorrhea / runny nose, Congestion Cardiac: denies: Chest pain / pressure, Palpitations Respiratory: reports: Dyspnea. denies: Cough, Hemoptysis, Wheezing PD PAST MEDICAL HISTORY - Past Medical History Past Medical History: Yes Cardiovascular: Congestive heart failure, Hypertension, High cholesterol, Coronary artery disease, Atrial fibrillation Respiratory: None Neuro: None Endocrine/Autoimmune: Type 2 diabetes GI: None : Benign prostate hypertrophy HEENT: Chronic hearing loss Psych: Depression, Post traumatic stress disorder Musculoskeletal: Osteoarthritis, Chronic back pain Derm: None - Past Surgical History Past Surgical History: Yes Ortho: Knee replacement, Amputation Cardiovascular: Angioplasty - Present Medications Home Medications: Ambulatory Orders Medication Instructions Recorded Confirmed lisinopriL [Lisinopril] 40 mg PO QPM 05/06/17 08/03/19 Apixaban [Eliquis] 5 mg PO BID 08/03/19 08/03/19 Duloxetine HCl [Cymbalta] 30 mg PO DAILY 08/03/19 08/03/19 Glimepiride 0.5 mg PO DAILY 08/03/19 08/03/19 Aspirin [Children's Aspirin] 81 mg PO 09/23/19 Clopidogrel [Plavix] 75 mg PO DAILY 09/23/19 09/23/19 - Allergies Allergies/Adverse Reactions: Allergies Allergy/AdvReac Type Severity Reaction Status Date / Time No Known Drug Allergies Allergy Verified 09/23/19 13:15 - Social History Does the pt smoke?: Yes Smoking Status: Current every day smoker Does the pt drink ETOH?: No Does the pt have substance abuse?: No - Immunizations Immunizations are current?: Yes - POLST Patient has POLST: No POLST Status: Full Code PD ED PE NORMAL - Vitals Vital signs reviewed: Yes - General General: Alert and oriented X 3, Well developed/nourished, Other (74-year-old gentleman laying in bed in no distress, smells heavily of cigarette smoke.) - HEENT HEENT: PERRL, EOMI - Neck Neck: Supple, no meningeal sign, No bony TTP - Cardiac Cardiac: RRR, Other (Subtle early systolic murmur) - Respiratory Respiratory: No respiratory distress, Clear bilaterally - Abdomen Abdomen: Soft, Non tender - Rectal Rectal: Other (Maroon stools from the bottom, sent to lab for guaiac) - Back Back: No CVA TTP, No spinal TTP - Derm Derm: Normal color, Warm and dry - Extremities Extremities: No edema, No calf tenderness / cord - Neuro Neuro: Alert and oriented X 3, Normal speech Results - Vitals Vitals: Vital Signs - 24 hr 09/23/19 09/23/19 09/23/19 13:13 13:25 13:53 Temperature 36.5 C Heart Rate 105 H 55 L Respiratory 15 13 Rate Blood Pressure 160/126 H 124/49 L Blood Pressure 160/126 H [Right] O2 Saturation 100 100 09/23/19 09/23/19 09/23/19 14:23 15:22 15:23 Temperature 37.2 C 36.8 C Heart Rate 62 60 50 L Respiratory 17 18 17 Rate Blood Pressure 124/49 L 131/80 H 131/80 H Blood Pressure [Right] O2 Saturation 100 100 09/23/19 09/23/19 09/23/19 15:28 15:30 15:37 Temperature 37.1 C 37.1 C 36.8 C Heart Rate 46 L 47 L 50 L Respiratory 15 15 14 Rate Blood Pressure 127/56 L 127/56 L 131/63 H Blood Pressure [Right] O2 Saturation 99 09/23/19 09/23/19 09/23/19 16:03 16:21 16:22 Temperature 36.8 C 36.8 C Heart Rate 48 L 55 L 51 L Respiratory 15 20 17 Rate Blood Pressure 145/69 H 145/69 H 145/69 H Blood Pressure [Right] O2 Saturation 100 09/23/19 09/23/19 09/23/19 16:30 16:53 17:00 Temperature 36.8 C 36.8 C 36.8 C Heart Rate 50 L 50 L 51 L Respiratory 16 19 18 Rate Blood Pressure 145/69 H 144/57 H 140/58 H Blood Pressure [Right] O2 Saturation 99 99 09/23/19 09/23/19 17:02 17:13 Temperature 36.5 C 36.5 C Heart Rate 52 L 43 L Respiratory 17 11 L Rate Blood Pressure 142/59 H 142/59 H Blood Pressure [Right] O2 Saturation Oxygen O2 Source Room air - Labs Labs: Microbiology 09/23/19 13:30 Occult Blood - Final Stool Laboratory Tests 09/23/19 09/23/19 09/23/19 13:45 13:45 13:45 WBC 7.0 RBC 1.73 L Hgb 5.7 L* Hct 19.6 L* MCV 113.3 H MCH 32.9 H MCHC 29.1 L RDW 18.1 H Plt Count 232 MPV 9.4 Neut # (Auto) 5.4 Lymph # (Auto) 0.9 L [place] # (Auto) 0.6 Eos # (Auto) 0.1 Baso # (Auto) 0.0 Absolute Nucleated RBC 0.03 Nucleated RBC % 0.4 RBC Morph Micro Appear 1+ BASO STIPPLING PT 26.6 H INR 2.5 H Sodium Potassium Chloride Carbon Dioxide Anion Gap BUN Creatinine Estimated GFR (MDRD) Glucose Calcium Total Bilirubin AST ALT Alkaline Phosphatase Troponin I High Sens Total Protein Albumin Globulin Albumin/Globulin Ratio Lipase Blood Type B POSITIVE Blood Type Recheck Antibody Screen NEGATIVE Crossmatch IS Only See Detail 09/23/19 09/23/19 09/23/19 13:45 13:45 13:58 WBC RBC Hgb Hct MCV MCH MCHC RDW Plt Count MPV Neut # (Auto) Lymph # (Auto) [place] # (Auto) Eos # (Auto) Baso # (Auto) Absolute Nucleated RBC Nucleated RBC % RBC Morph Micro Appear PT INR Sodium 140 Potassium 3.8 Chloride 98 L Carbon Dioxide 29 Anion Gap 13.0 BUN 29 H Creatinine 2.8 H Estimated GFR (MDRD) 22 L Glucose 203 H Calcium 8.4 L Total Bilirubin 1.0 AST 20 ALT 13 Alkaline Phosphatase 62 Troponin I High Sens 23.4 H* Total Protein 5.7 L Albumin 3.0 L Globulin 2.7 Albumin/Globulin Ratio 1.1 Lipase 47 Blood Type Blood Type Recheck B POSITIVE Antibody Screen Crossmatch IS Only PD MEDICAL DECISION MAKING - ED course ED course: 74-year-old gentleman presents with signs and symptoms consistent with an upper GI bleed in the setting of anticoagulation on Eliquis and dialysis dependence as well as coronary disease. His hemoglobin a few days ago was 6.8 and is now 5.7. 2 large-bore IVs were placed and blood was readied. I considered reversing him, but his bleeding does not seem imminently life-threatening and therefore a review of the literature suggests that PCC and tranexamic acid are probably not appropriate. His last dose of his blood thinners was taken at 10 or 11 AM so I did order charcoal. Called the [facility] to see if they have availability for transfer. [place] was unable to take this person in transfer, we called them and they did not have any beds per Eliza ([id number]) We called [facility], that is where his executive manager is, they were also full ([id number]); Call was placed to [facility], he was recently admitted there. After discussion with him. I spoke with the iron and steel work supervisor at [facility] at approximately 4:20 PM and he informed me that due to her upcoming nursing strike at [facility] they were not accepting any outside transfers. He was accepted to [facility] by Dr. Wise at 5:25 PM and cobras were completed. He received 2 units of blood in the department. He is stable for transport to a higher level of care. There was some delay to transport so we ordered a third unit of blood. Departure - Departure Disposition: 02 Transfer Acute Care Hosp Clinical Impression: Chronic a-fib, CAD (coronary artery disease), ESRD (end stage renal disease), Blood loss anemia, Upper GI bleed, Adequate anticoagulation on anticoagulant therapy
[2019-09-23 13:59] LABS: BASOPHILS % (AUTO) 0.3 %; EOSINOPHILS # (AUTO) 0.1 10^3/uL (0.0-0.7); EOSINOPHILS % (AUTO) 1.4 %; LYMPHOCYTES # (AUTO) 0.9 10^3/uL (1.5-3.5); LYMPHOCYTES % (AUTO) 12.6 %; MEAN CORPUSCULAR HEMOGLOBIN 32.9 pg (27.0-31.0); MEAN CORPUSCULAR HGB CONC 29.1 g/dL (32.0-36.0); MEAN CORPUSCULAR VOLUME 113.3 fL (80.0-94.0); MEAN PLATELET VOLUME 9.4 fL (7.4-11.4); MONOCYTES # (AUTO) 0.6 10^3/uL (0.0-1.0); MONOCYTES % (AUTO) 8.1 %; NEUTROPHILS # (AUTO) 5.4 10^3/uL (1.5-6.6); NEUTROPHILS % (AUTO) 76.9 %; PLT - PLATELET COUNT 232 10^3/uL (130-450); RED BLOOD COUNT 1.73 10^6/uL (4.70-6.10); RED CELL DISTRIBUTION WIDTH 18.1 % (12.0-15.0)
[2019-09-23 14:02] LABS: HGB - HEMOGLOBIN 5.7 g/dL (14.0-18.0)
[2019-09-23 14:05] LABS: INR 2.5 (0.8-1.2); PT - PROTHROMBIN TIME 26.6 secs (9.9-12.6)
[2019-09-23 14:13] LABS: ALBUMIN/GLOBULIN RATIO 1.1 (1.0-2.2); CALCIUM 8.4 mg/dL (8.5-10.3); CREATININE 2.8 mg/dL (0.6-1.2); TOTAL PROTEIN 5.7 g/dL (6.7-8.2)
[2019-09-23] MEDS ORDERED: CHARCOAL/SORBITOL 50 GM/240 ML PO STA (14:14)
[2019-09-23 20:10] VITALS: BP 175/75
== END 2019-09-23 20:38 | disposition short-term general hospital (02) ==
LOC: ED 13:06
DX: K92.2 Gastrointestinal hemorrhage, unspecified (principal); D50.0 Iron deficiency anemia secondary to blood loss (chronic); I25.10 Atherosclerotic heart disease of native coronary artery without angina pectoris; I48.20 Chronic atrial fibrillation, unspecified; E11.22 Type 2 diabetes mellitus with diabetic chronic kidney disease; I12.0 Hypertensive chronic kidney disease with stage 5 chronic kidney disease or end stage renal disease; N18.6 End stage renal disease; F17.200 Nicotine dependence, unspecified, uncomplicated; Z99.2 Dependence on renal dialysis; Z79.84 Long term (current) use of oral hypoglycemic drugs; Z79.01 Long term (current) use of anticoagulants
CPT/HCPCS: 36415; 36430; 80053; 82272; 83690; 84484; 85025; 85610; 86850; 86900; 86901; 86920; 93005; 96374; 99284; 99285; A9270; P9016

== ENCOUNTER 2019-09-23 20:43 | Outpatient (CLI) | payer OTHER | END 2019-09-23 20:44 | disposition short-term general hospital (02) | LOC: EMS 20:43 | PROVIDERS: ATTEND Surgery | DX: K92.2 Gastrointestinal hemorrhage, unspecified (principal); E11.22 Type 2 diabetes mellitus with diabetic chronic kidney disease; N18.6 End stage renal disease; Z99.2 Dependence on renal dialysis | CPT/HCPCS: A0425; A0429 ==

== ENCOUNTER 2021-06-15 05:41 | Outpatient (CLI) | payer OTHER | END 2021-06-15 05:42 | disposition EMS.NT | LOC: EMS 05:41 | DX: R10.9 Unspecified abdominal pain (principal); R11.0 Nausea ==